=== PATIENT | male | born 1995 | race Caucasian/White ===

== ENCOUNTER 2017-12-24 22:33 | Emergency (ER) | payer SELFPAY ==
[~2017-12-24] VITALS: Ht 167.6 cm; Wt 82.0 kg
[2017-12-25] MEDS ORDERED: LIDOCAINE HCL 1% 20ML VIAL (Pyxis) INJ MC ONE (02:00)
[2017-12-25] MEDS ORDERED: BACITRACIN ZINC OINT UDPKT TOP ONE (02:00)
[2017-12-25] MEDS ORDERED: LIDOCAINE HCL/PF 1% 10 MG/ML 5ML VIAL IJ NR (02:15)
[2017-12-25 04:58] VITALS: BP 133/82
== END 2017-12-25 04:58 | disposition home or self-care (01) ==
LOC: ER 22:33
DX: S01.112A Laceration without foreign body of left eyelid and periocular area, initial encounter (principal); J45.909 Unspecified asthma, uncomplicated; W22.8XXA Striking against or struck by other objects, initial encounter; Y93.67 Activity, basketball; Y92.39 Other specified sports and athletic area as the place of occurrence of the external cause
CPT/HCPCS: 12011; 99283; J3490; X7700; Z7610

== ENCOUNTER 2022-01-30 10:03 | Emergency (ER) | payer MEDICAID ==
[~2022-01-30] VITALS: Ht 160 cm; Wt 91.0 kg
[2022-01-30] MEDS ORDERED: TETANUS, DIPHTHERIA, PERTUSSIS VAC/PF 0.5ML (>10YR OLD) IM ONE (10:30)
[2022-01-30] MEDS ORDERED: LIDOCAINE HCL/EPINEPHRINE 1%-EPI 1:100,000 20 ML VIAL INFIL ONE (10:30)
[2022-01-30] MEDS ORDERED: ACETAMINOPHEN 325MG TABLET PO ONE (10:45)
[2022-01-30 12:18] VITALS: BP 127/75
== END 2022-01-30 12:30 | disposition home or self-care (01) ==
LOC: ER 10:30
DX: S01.01XA Laceration without foreign body of scalp, initial encounter (principal); W18.39XA Other fall on same level, initial encounter; Y93.89 Activity, other specified; Y92.89 Other specified places as the place of occurrence of the external cause; Y99.8 Other external cause status
CPT/HCPCS: 12002; 70450; 90471; 90715; 99284; J3490

== ENCOUNTER 2022-02-01 13:09 | Emergency (ER) | payer MEDICAID ==
[~2022-02-01] VITALS: Ht 165.1 cm; Wt 91.0 kg
[2022-02-01 13:23] VITALS: BP 130/73
== END 2022-02-01 14:01 | disposition home or self-care (01) ==
LOC: ER 13:09
DX: S01.01XD Laceration without foreign body of scalp, subsequent encounter (principal); X58.XXXD Exposure to other specified factors, subsequent encounter; Z48.00 Encounter for change or removal of nonsurgical wound dressing
CPT/HCPCS: 99281

== ENCOUNTER 2022-02-08 19:14 | Emergency (ER) | payer MEDICAID ==
[~2022-02-08] VITALS: Ht 167.6 cm; Wt 93.7 kg
[2022-02-08 19:44] VITALS: BP 113/73
== END 2022-02-08 21:50 | disposition home or self-care (01) ==
LOC: ER 19:14
DX: Z48.02 Encounter for removal of sutures (principal)
CPT/HCPCS: 99281

== ENCOUNTER 2023-01-05 09:43 | Emergency (ER) | payer MEDICAID ==
[~2023-01-05] VITALS: Ht 175.3 cm; Wt 90.0 kg
[2023-01-05 09:53] VITALS: BP 133/87
[2023-01-05] MEDS ORDERED: ACETAMINOPHEN 325MG TABLET PO ONE (10:00)
[2023-01-05] MEDS ORDERED: TOPUD MT (12:28)
[2023-01-05] MEDS ORDERED: IBUP-1525 MT (12:28)
== END 2023-01-05 12:48 | disposition home or self-care (01) ==
LOC: ER 09:43
DX: M25.572 Pain in left ankle and joints of left foot (principal)
CPT/HCPCS: 73610; 99283